=== PATIENT | male | born 1945 | race African-American/Black ===

== ENCOUNTER 2018-12-31 17:53 | Emergency (ER) | payer MEDICARE ==
[~2018-12-31] VITALS: Ht 182.9 cm; Wt 76.2 kg
[2018-12-31 18:11] VITALS: BP 127/60
[2018-12-31] MEDS ORDERED: LIDOCAINE 1% PF 2 ML VIAL. INJ ONE (18:45)
--- NOTE | 2018-12-31 19:39 | PHYS DOC ---
Past Medical History Past Medical History: Hypertension (CONNOR CLEVELAND APRN) Past Surgical History: No Surgical History (CONNOR CLEVELAND APRN) Alcohol Use: None Drug Use: None (CONNOR CLEVELAND APRN) Adult General Chief Complaint Chief Complaint: LACERATION/AVULSION HPI HPI Patient is a 73 year old AA L who presents to the emergency department with complaints of a laceration to the palmar surface of his left index finger distal to the DIP. Patient states he was using a saw to cut a plastic box for mktg project that he was doing when he externally cut his finger around noon today. He denies any numbness, tingling, or decreased range of motion of the affected finger. He denies any pain this time. Patient states it had stopped bleeding but then after he took a shower he could not get the bleeding to stop again. He denies the use of any blood thinners. ROS Patient denies any fever, numbness, tingling, weakness of the affected extremity. He denies any shortness breath, cough, or decreased range of motion. All other ROS is neg unless otherwise noted in HPI. (CONNOR CLEVELAND APRN) Review of Systems Review of Systems See Above (CONNOR CLEVELAND APRN) Current Medications Current Medications Current Medications Medications (Trade) Dose Ordered Sig/Rylee Start Time Stop Time Status Last Admin Dose Admin Lidocaine HCl (Xylocaine-Mpf 1% 2ml Vial) 4 ml 1X ONCE 12/31/18 18:45 12/31/18 18:46 DC 12/31/18 19:50 4 ML Neomycin/ Polymyxin/ Bacitracin (Triple Antibiotic Ointment) 1 pkt STK-MED ONCE 12/31/18 19:40 12/31/18 19:52 DC (TERRIE MINER DO) Allergies Allergies Allergies Coded Allergies Type Severity Reaction Last Updated Verified No Known Drug Allergies 12/31/18 No (TERRIE MINER DO) Physical Exam Physical Exam See Above Constitutional: Well developed, well nourished, no acute distress, non-toxic appearance. [] HENT: Normocephalic, atraumatic, bilateral external ears normal, nose normal. [] Eyes: conjunctiva normal, no discharge. [] Neck: Normal range of motion,no stridor. [] Cardiovascular:Heart rate regular rhythm Lungs & Thorax: Respirations even and unlabored, no retractions, no respiratory distress Skin: Warm, dry, no erythema, no rash; 1.5 cm laceration noted distal to the DIP of the plantar surface of the left second digit no active bleeding. [] Extremities: No tenderness, no cyanosis, no clubbing, ROM intact, no edema. [] Neurologic: Alert and oriented X 3, normal motor function, normal sensory function, no focal deficits noted. [] Psychologic: Affect normal, judgement normal, mood normal. [] (CONNOR CLEVELAND APRN) Current Patient Data Vital Signs Vital Signs Date Time Temp Pulse Resp B/P (MAP) Pulse Ox O2 Delivery O2 Flow Rate FiO2 12/31/18 18:11 98.9 96 17 127/60 (82) 93 Room Air 98.9 (MINERTERRIE DO) EKG EKG [] (CONNOR CLEVELAND APRN) Radiology/Procedures Radiology/Procedures Laceration Repair by me: Anesthesia: 1% lidocaine locally Location: Left index finger Tendon/Joint/Nerves: No injury Foreign body: None detected after copious irrigation and exploration Technique: 3 Simple Interrupted Sutures with 4-0 Ethilon Complexity: No subcutaneous sutures/mucosal repair/edge excision Post Closure Length: 1.5 cm Patient's bleeding was easily controlled in the department and there is no indication of anemia. No evidence of compartment syndrome, neurologic injury, vascular injury, open joint, tendon laceration, or foreign body. Patient is appropriate for outpatient follow up. (CONNOR CLEVELAND APRN) Course & Med Decision Making Course & Med Decision Making Pertinent Labs and Imaging studies reviewed. (See chart for details) dx: Index finger laceration Patient presented to the ER with complaints of a laceration to his left index finger. He reported his last tetanus shot was less than 5 years ago. Laceration repair as reported above under procedures. Patient instructed to return to the ER in 10 days to have the sutures removed. Keep the area clean and dry, apply antibiotic ointment twice daily. May take Tylenol or ibuprofen as needed for pain. Return to the ER sooner if symptoms of infection including fever, redness, warmth, or drainage from the site. []Patient verbalized an understanding of home care, medications, follow-up, and return to ED instructions and was in agreement with the plan of care. (CONNOR CLEVELAND APRN) Dragon Disclaimer Dragon Disclaimer This electronic medical record was generated, in whole or in part, using a voice recognition dictation system. (CONNOR CLEVELAND APRN) Departure Departure Impression: Primary Impression: Laceration of left index finger w/o foreign body w/o damage to nail Disposition: HOME, SELF-CARE Condition: STABLE Referrals: TERRIE GRECO MD (PCP) Patient Instructions: Laceration Care, Adult, [id number] Additional Instructions: Return to the ER in 10 days to have the sutures removed. Keep the area clean and dry, apply antibiotic ointment twice daily. May take Tylenol or ibuprofen as needed for pain. Return to the ER sooner if symptoms of infection including fever, redness, warmth, or drainage from the site. [] Attending Signature Attending Signature I have reviewed the PA/FURNITURE DESIGNER's note and plan of care. I was available for consultation as needed during the patient's visit in the emergency department. I agree with the clinical impression, plan, and disposition. (TERRIE MINER DO) Problem Qualifiers Primary Impression: Laceration of left index finger w/o foreign body w/o damage to nail Encounter type: initial encounter Qualified Codes: S61.211A - Laceration without foreign body of left index finger without damage to nail, initial encounter CONNOR CLEVELAND APRN Dec 31, 2018 19:39 TERRIE MINER DO Jan 01, 2019 01:12
[2018-12-31] MEDS ORDERED: NEOMY/BACITR/POLYMYXIN OINT PACKET. TP ONE ×2 (19:40→19:45)
== END 2018-12-31 19:52 | disposition home or self-care (01) ==
LOC: ER 17:53
DX: S61.211A Laceration without foreign body of left index finger without damage to nail, initial encounter (principal); I10 Essential (primary) hypertension; W27.0XXA Contact with workbench tool, initial encounter; Y93.89 Activity, other specified; Y92.89 Other specified places as the place of occurrence of the external cause; Y99.8 Other external cause status
CPT/HCPCS: 12001; 99283

== ENCOUNTER 2019-01-10 15:04 | Emergency (ER) | payer MEDICARE ==
[~2019-01-10] VITALS: Ht 172.7 cm; Wt 76.2 kg
[2019-01-10 15:40] VITALS: BP 127/60
--- NOTE | 2019-01-10 15:42 | PHYS DOC ---
Past Medical History Past Medical History: Hypertension Past Surgical History: No Surgical History Alcohol Use: None Drug Use: None Adult General Chief Complaint Chief Complaint: SUTURE[facility]ST[facility]AL [facility] Patient is a 73 year old male that presents for suture removal in left 2nd digit. The patient had the sutures placed 10 days ago. 3 sutures were placed. Patient reports no complaints. Review of Systems Review of Systems Constitutional: Denies fever or chills [] Eyes: Denies change in visual acuity, redness, or eye pain [] HENT: Denies nasal congestion or sore throat [] Respiratory: Denies cough or shortness of breath [] Cardiovascular: No additional information not addressed in HPI [] GI: Denies abdominal pain, nausea, vomiting, bloody stools or diarrhea [] : Denies dysuria or hematuria [] Musculoskeletal: Denies back pain or joint pain [] Integument: Denies rash or skin lesions [] Neurologic: Denies headache, focal weakness or sensory changes [] Endocrine: Denies polyuria or polydipsia [] Complete systems were reviewed and found to be within normal limits, except as documented in this note. Allergies Allergies Allergies Coded Allergies Type Severity Reaction Last Updated Verified No Known Drug Allergies 12/31/18 No Physical Exam Physical Exam Constitutional: Well developed, well nourished, no acute distress, non-toxic a ppearance. [] HENT: Normocephalic, atraumatic, bilateral external ears normal, oropharynx moist, no oral exudates, nose normal. [] Eyes: PERRLA, EOMI, conjunctiva normal, no discharge. [] Neck: Normal range of motion, no tenderness, supple, no stridor. [] Cardiovascular:Heart rate regular rhythm, no murmur [] Lungs & Thorax: Bilateral breath sounds clear to auscultation [] Abdomen: Bowel sounds normal, soft, no tenderness, no masses, no pulsatile masses. [] Skin: healed wound to L 2nd digit with 3 sutures. Back: No tenderness, no CVA tenderness. [] Extremities: No tenderness, no cyanosis, no clubbing, ROM intact, no edema. [] Neurologic: Alert and oriented X 3, normal motor function, normal sensory function, no focal deficits noted. [] Psychologic: Affect normal, judgement normal, mood normal. [] EKG EKG [] Radiology/Procedures Radiology/Procedures [] Course & Med Decision Making Course & Med Decision Making Pertinent Labs and Imaging studies reviewed. (See chart for details) Sutures removed, and will d/c. Dragon Disclaimer Darianon Disclaimer This electronic medical record was generated, in whole or in part, using a voice recognition dictation system. Departure Departure Impression: Primary Impression: Visit for suture removal Disposition: HOME, SELF-CARE Condition: STABLE Referrals: TERRIE GRECO MD (PCP) Patient Instructions: Suture Removal Additional Instructions: Thank you for visiting [facility]. We appreciate you trusting us with your care. If any additional problems come up don't hesitate to return to visit us. Please follow up with your primary care provider so they can plan additional care if needed and know about the problem that you had. If symptoms worsen come back to the Emergency Department. Any concerning symptoms that start such as chest pain, shortness of air, weakness or numbness on one side of the body, running high fevers or any other concerning symptoms return to the ER. TERRIE GARCIA APRN Jan 10, 2019 15:42
== END 2019-01-10 15:45 | disposition home or self-care (01) ==
LOC: ER 15:04
DX: S61.211D Laceration without foreign body of left index finger without damage to nail, subsequent encounter (principal); I10 Essential (primary) hypertension; X58.XXXD Exposure to other specified factors, subsequent encounter
CPT/HCPCS: 99281

== ENCOUNTER 2019-01-24 12:23 | Emergency (ER) | payer MEDICARE ==
[~2019-01-24] VITALS: Ht 182.9 cm; Wt 75.3 kg
[2019-01-24 13:11] VITALS: BP 111/56
[2019-01-24] MEDS ORDERED: LIDOCAINE WITH 8.4% SOD BICARB 3 ML DISP.SYRIN. INJ ONE (13:30)
--- NOTE | 2019-01-24 13:33 | PHYS DOC ---
Past Medical History Past Medical History: Glaucoma, Hypertension Past Surgical History: No Surgical History Alcohol Use: None Drug Use: None Adult General Chief Complaint Chief Complaint: LACERATION/AVULSION HPI HPI Patient is a 73 year old male with a history of glaucoma, hypertension, who presents to the ED today with a right index finger knuckle lacerations, patient states he was working with a power cutting tool when it accidentally fired and the blade cut him on the right index finger knuckle. He is right-handed. Review of Systems Review of Systems Constitutional: Denies fever or chills [] Musculoskeletal: Denies back pain or joint pain [] Integument: Reports right index finger knuckle laceration Neurologic: Denies headache, focal weakness or sensory changes [] All other systems were reviewed and found to be within normal limits, except as documented in this note. Current Medications Current Medications Current Medications Medications (Trade) Dose Ordered Sig/Rylee Start Time Stop Time Status Last Admin Dose Admin Lidocaine/Sodium Bicarbonate (Buffered Lidocaine 1%) 3 ml 1X ONCE 01/24/19 13:30 01/24/19 13:31 DC Allergies Allergies Allergies Coded Allergies Type Severity Reaction Last Updated Verified No Known Drug Allergies 12/31/18 No Physical Exam Physical Exam Constitutional: Well developed, well nourished, no acute distress, non-toxic appearance. [] Skin: Right index finger knuckle with multiple superficial lacerations each approximately 0.5 cm to 1 cm. There is no obvious tendon involvement. Patient able to flex and extend the right index finger as well as the rest of the fingers at all the joints with no difficulties adequate radial, radial, ulnar sensation to the right hand. +2 right radial pulse. Cap refill less than 2 seconds the right index finger. Back: No tenderness, no CVA tenderness. [] Extremities: No tenderness, no cyanosis, no clubbing, ROM intact, no edema. [] Neurologic: Alert and oriented X 3, normal motor function, normal sensory function, no focal deficits noted. [] Psychologic: Affect normal, judgement normal, mood normal. [] Current Patient Data Vital Signs Vital Signs Date Time Temp Pulse Resp B/P (MAP) Pulse Ox O2 Delivery O2 Flow Rate FiO2 01/24/19 13:11 98.1 75 16 111/56 (74) 97 Room Air 98.1 EKG EKG [] Radiology/Procedures Radiology/Procedures Laceration/Wound Repair Wound Location: Right index finger knuckle Wound's Depth, Shape: Horizontal and vertical laceration Wound Length (cm): Approximately 5 lacerations approximately 0.5-1 cm each Wound Explored: clean Irrigated w/ Saline (ccs): 500 Betadine Prep?: Y Anesthesia: 1% buffered lidocaine Volume Anesthetic (ccs): 3 mL Wound Repaired With: Dissolvable gut Suture Size/Type: 5.0/12 interrupted sutures Progress wound was covered with nonstick dressing Course & Med Decision Making Course & Med Decision Making Pertinent Labs and Imaging studies reviewed. (See chart for details) This is a 73-year-old male patient who presents to the ED today with multiple superficial lacerations of the right index finger knuckle from a toe injury that accidentally fired later, the patient. Right hand x-rays interpreted by radiologist are negative for any acute findings. Patient's laceration was closed by me as noted in procedures. Wound care instructions and return precautions provided. Tetanus up-to-date. Dragon Disclaimer Dragon Disclaimer This electronic medical record was generated, in whole or in part, using a voice recognition dictation system. Departure Departure Impression: Primary Impression: Laceration of right hand Disposition: 01 HOME, SELF-CARE Condition: STABLE Referrals: TERRIE GRECO MD (PCP) Follow-up with your doctor in 1-2 weeks as needed Patient Instructions: Laceration Care, Adult Additional Instructions: You have right hand laceration that was closed with dissolvable stitches, they will fall off on their own. Keep the area clean and dry. Apply Neosporin to the area twice a day. Monitor the area for any signs of infection including but not limited to increased redness, warmth, yellow drainage from the area and return to the ED if they occur. You can also see you primary care doctor. Problem Qualifiers Primary Impression: Laceration of right hand Encounter type: initial encounter Foreign body presence: without foreign body Qualified Codes: S61.411A - Laceration without foreign body of right hand, initial encounter FIFI SMITH APRN Jan 24, 2019 13:33
--- NOTE | 2019-01-24 13:49 | RAD ---
Examination: HAND RIGHT 3V History: Right index finger laceration. Pain. Comparison/Correlation: None Findings: Total 3 images the right hand were obtained. Lateral view is limited due to overlapping of the third through fifth digits. Joint spaces are unremarkable. No acute fracture or bony destruction. No radiopaque foreign body. Degenerative changes are consistent with age and primarily about the trapezium. Impression: No acute process. Electronically signed by: Venkat Taylor MD (01/24/2019 1:46 PM) [facility]
== END 2019-01-24 15:01 | disposition home or self-care (01) ==
LOC: ER 12:23
DX: S61.411A Laceration without foreign body of right hand, initial encounter (principal); I10 Essential (primary) hypertension; W29.8XXA Contact with other powered hand tools and household machinery, initial encounter; Y93.89 Activity, other specified; Y92.89 Other specified places as the place of occurrence of the external cause; Y99.8 Other external cause status
CPT/HCPCS: 12002; 73130; 99284

== ENCOUNTER → 2020-04-03 | Outpatient (CLI) | payer MEDICARE ==
--- NOTE | 2020-04-03 16:27 | CARD ---
MR#: [id number] Date of Study: 04/03/2020 Ordering Physician: FAINA TELLEZ, Referring Physician: FAINA TELLEZ, Tech: Jeni Crowell [facility] APPROVED REPORT EXAM: Two-dimensional and M-mode echocardiogram with Doppler and color Doppler. Other Information Quality : GoodHR: 66bpm Rhythm : NSR/PVCs INDICATION CHF. Swelling. Hx: Rheumatic fever, HTN. 2D DIMENSIONS RVDd3.1 (2.9-3.5cm)IVSd1.2 (0.7-1.1cm) Aortic Root(2D)4.0 (2.0-3.7cm)LVDd4.7 (3.9-5.9cm) LVOT Diameter2.2 (1.8-2.4cm)PWd1.1 (0.7-1.1cm) LVDs3.3 (2.5-4.0cm)FS (%) 29.1 % SV57.6 mlLVEF(%)55.9 (>50%) Aortic Valve AoV Peak Raoul.136.6cm/Chantale Peak GR.7.5mmHg LVOT Peak Raoul.88.9cm/sAVA (VMAX)2.41cm2 Mitral Valve MV E Dbmjvptk06.7cm/sMV DECEL [id number] MV A Fpwbjnsw64.9cm/sE/A Ratio0.7 MV A [id number] Pulmonary Valve PV Peak Iewzhqtq44.9cm/s Tricuspid Valve TR P. Fdhuyphp958fd/sRAP HLKIEKJL6fpVk TR Peak Gr.32fpPrDYXP09gmVv Pulmonary Vein S1 Xrqwfyhu92.3cm/sD2 Owodihhz77.1cm/s LEFT VENTRICLE The left ventricle is normal size. Mild basal septal hypertrophy. Left ventricle systolic function is normal. The Ejection Fraction is 55-60%. There is normal LV segmental wall motion. Transmitral Doppl er flow pattern is Grade I-abnormal relaxation pattern. RIGHT VENTRICLE The right ventricle is normal size. There is normal right ventricular wall thickness. The right ventr icular systolic function is normal. ATRIA The left atrium is mildly dilated. The right atrium size is normal. The interatrial septum is intact with no evidence for an atrial septal defect or patent foramen ovale as noted on 2-D or Doppler imagi ng. AORTIC VALVE The aortic valve is normal in structure and function. Mild aortic regurgitation. There is no aortic v alvular stenosis. MITRAL VALVE The mitral valve is normal in structure and function. There is no mitral valve stenosis. Trace to mil d mitral regurgitation. TRICUSPID VALVE The tricuspid valve is normal in structure and function. Mild tricuspid regurgitation. Estimated PAP is 40mmHg. There is no tricuspid valve stenosis. PULMONIC VALVE The pulmonary valve is normal in structure and function. Mild pulmonic valvular regurgitation. GREAT VESSELS The aortic root is mildly dilated at the level of the sinuses (4.0cm). The ascending aorta is normal in size. The IVC is normal in size and collapses >50% with inspiration. PERICARDIAL EFFUSION There is no evidence of significant pericardial effusion. Critical Notification Critical Value: No <Conclusion> Left ventricle systolic function is normal. The Ejection Fraction is 55-60%. There is normal LV segmental wall motion. Transmitral Doppler flow pattern is Grade I-abnormal relaxation pattern. Mild aortic regurgitation. Trace to mild mitral regurgitation. Mild tricuspid regurgitation. Estimated PAP is 40mmHg. The aortic root is mildly dilated at the level of the sinuses (4.0cm). There is no evidence of significant pericardial effusion. Signed by : Scott Cabezas, Electronically Approved : 04/03/2020 16:27:04
== END ==
LOC: ECHO 08:46
PROVIDERS: ATTEND Internal Medicine Cardiovascular Disease
DX: I08.8 Other rheumatic multiple valve diseases (principal); I50.9 Heart failure, unspecified; I10 Essential (primary) hypertension
CPT/HCPCS: 93306